=== PATIENT | female | born 1985 | race Two or more races ===

== ENCOUNTER 2022-08-25 16:49 | Emergency (ER) | payer OTHER ==
[~2022-08-25] VITALS: Ht 157.5 cm; Wt 86.2 kg
[2022-08-25 17:02] VITALS: BP 112/75
[2022-08-25] MEDS ORDERED: CEPH500C2 PO (17:10)
[2022-08-25] MEDS ORDERED: KETO10TA2 PO (17:10)
[2022-08-25] MEDS ORDERED: CLOB15CR4 TP (17:10)
[2022-08-25] MEDS ORDERED: KETOROLAC TROMETHAMINE INJ 30 MG/ML VIAL ONE (17:28)
[2022-08-25] MEDS ORDERED: KETOROLAC TROMETHAMINE INJ 30 MG/ML VIAL IM ONE (17:30)
--- NOTE | 2022-08-25 17:42 | NUR ---
Patient discharged to home in stable condition, ambulating. Written and verbal after care instructions given. Patient verbalizes understanding of instruction.
== END 2022-08-25 17:43 | disposition home or self-care (01) ==
LOC: ER 17:08
DX: S80.862A Insect bite (nonvenomous), left lower leg, initial encounter (principal); S80.861A Insect bite (nonvenomous), right lower leg, initial encounter; S60.562A Insect bite (nonvenomous) of left hand, initial encounter; S60.561A Insect bite (nonvenomous) of right hand, initial encounter; Z60.2 Problems related to living alone; Z79.899 Other long term (current) drug therapy; W57.XXXA Bitten or stung by nonvenomous insect and other nonvenomous arthropods, initial encounter; Y93.89 Activity, other specified; Y92.89 Other specified places as the place of occurrence of the external cause; Y99.8 Other external cause status
CPT/HCPCS: 99283; 96372; J1885